=== PATIENT | male | born 1955 | race Caucasian/White ===

== ENCOUNTER 2016-09-01 06:43 | Day surgery (SDC) | payer BC ==
--- NOTE | ~2016-09-01 | EGD ---
EGD REPORT [facility] [address] [place] [id number] NAME: KULDIP TOVAR : [birth year] [place] [facility] [place] [id number] AGE: 61 ADM/REG DATE : 09/01/16 MR#: [id number] REPORT SERV DATE: 09/01/16 DICTATED BY: FIDENCIO PENNY DATE: 09/01/16 REPORT STATUS : Draft TRANSCRIBED BY: [employer] DATE: 09/01/16 End[facility] Center Patient Name: Kuldip Tovar Date of : 1955 Attending MD: FIDENCIO PENNY MD Procedure Date No Time: 09/01/2016 Procedure: Upper GI endoscopy Indications: Gastro-esophageal reflux disease Referring MD: KULDIP PENA JR. Medicines: See the Anesthesia note for documentation of the administered medications Complications: No immediate complications. Procedure: Pre-Anesthesia Assessment: - ASA Grade Assessment: III - A patient with severe systemic disease. After obtaining informed consent, the endoscope was passed under direct vision. Throughout the procedure, the patient's blood pressure, pulse, and oxygen saturations were monitored continuously. The GIF [id number] was introduced through the mouth, and advanced to the second part of duodenum. The upper GI endoscopy was accomplished without difficulty. The patient tolerated the procedure well. Findings: The examined duodenum was normal. The entire examined stomach was normal. The cardia and gastric fundus were normal on retroflexion. A small hiatus hernia was present. Normal mucosa was found in the lower third of the esophagus. Biopsies were taken with a cold forceps for histology. Impression: - Normal examined duodenum. - Normal stomach. - Hiatus hernia. - Normal mucosa was found in the lower third of the esophagus. Biopsied. Recommendation: - Patient has a contact number available for emergencies. The signs and symptoms of potential delayed complications were discussed with the patient. Return to normal activities tomorrow. Written discharge instructions were provided to the patient. - Regular diet. - Continue present medications. EGD REPORT [address] [address] NAME: KULDIP TOVAR : [birth year] [place] [facility] [place]#: [id number] AGE: 61 ADM/REG DATE : 09/01/16 MR#: [id number] REPORT SERV DATE: 09/01/16 DICTATED BY: FIDENCIO PENNY DATE: 09/01/16 REPORT STATUS : Draft TRANSCRIBED BY: [employer] DATE: 09/01/16 - FOR YOUR BIOPSY RESULTS: Please go to [email or web address] and register to receive your results via the portal. Your biopsy results will be posted there in about 7 to 10 days. IF you do not see result in 10 days, call office. - Follow up with Dr Penny or his nurse practitioner in 6 weeks Procedure Code(s): --- Professional --- 56294, Esophagogastroduodenoscopy, flexible, transoral; with biopsy, single or multiple Diagnosis Code(s): --- Professional --- K44.9, Diaphragmatic hernia without obstruction or gangrene K21.9, Gastro-esophageal reflux disease without esophagitis CPT copyright 2013 [employer]. All rights reserved. The codes documented in this report are preliminary and upon customer strategy manager review may be revised to meet current compliance requirements. Fidencio Penny MD FIDENCIO PENNY MD 09/01/2016 8:50 AM This report has been signed electronically. Number of Addenda: 0 Note Initiated On: 09/01/2016 8:30 AM Scope Withdrawal Time 0 hours 0 minutes 0 seconds [address] [id number]
[~2016-09-01 06:43] MED LIST: ASAB PO; B12100T PO; CO Q-10100 MG PO; COREG25 PO; CRESTOR20 MG PO; CYANO1000T PO; GLUCCHONDR PO; HALF81 PO; IMDUR30 PO; LIPITOR20 PO; LIPITOR40 PO; MAGNESIUM PO; MULTIVITAMI1 PO; NITROQUICK0.4 MG SL; NITROSTAT0.4 MG SL; NORV5 PO; PLAVIX PO; POTASSIUM PO; PRAVACHOL40 MG PO; PRILOSEC40 MG PO; PRIN2.5 PO; PROTONIX PO; PROTONIX20 MG PO; VISINE-A EYE AL15 ML OPH; VITC500 PO; ZANTAC 150 PO
== END 2016-09-01 23:59 | disposition home or self-care (01) ==
LOC: DMU 06:43
PROVIDERS: Internal Medicine Gastroenterology
PROC: 0DB38ZX Excision of Lower Esophagus, Via Natural or Artificial Opening Endoscopic, Diagnostic (ICD-10-PCS; principal; 2016-09-01 09:00)
DX: K44.9 Diaphragmatic hernia without obstruction or gangrene (principal); K21.9 Gastro-esophageal reflux disease without esophagitis; I10 Essential (primary) hypertension; I25.10 Atherosclerotic heart disease of native coronary artery without angina pectoris; G47.33 Obstructive sleep apnea (adult) (pediatric); Z99.89 Dependence on other enabling machines and devices; I25.2 Old myocardial infarction; Z98.890 Other specified postprocedural states
CPT/HCPCS: 88305